=== PATIENT | male | born 1965 | race Caucasian/White ===

== ENCOUNTER 2017-06-17 12:08 | Emergency (ER) | payer OTHER ==
[~2017-06-17] VITALS: Ht 165.1 cm; Wt 63.5 kg
[2017-06-17 12:52] VITALS: BP 115/84
[2017-06-17] MEDS ORDERED: Norco 5mg/325mg tab ORAL ONE (13:30)
[2017-06-17] MEDS ORDERED: Lidocaine 1% MPF 10mg/ml 5ml INJ ONE (13:30)
[2017-06-17 13:45] VITALS: BP 115/84
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
--- NOTE | 2017-06-17 16:16 | Diagnostic Imaging Report ---
Indication: Pain Technique: XRAY Hand Complete L Comparison: None Findings: The fifth finger is held in fixed flexion at the fifth proximal interphalangeal joint on all views. This may suggest an extensor mechanism injury. There is no acute fracture. There is a remote/healed fracture of the ulnar styloid. Degenerative change at the basal joint is noted. No radiopaque foreign body is seen. Impression: Fifth proximal interphalangeal joints held in extreme fixed flexion on all views. This may suggest extensor mechanism injury. Correlate clinically. Consider MRI of the hand and orthopedic referral.
== END 2017-06-17 13:45 | disposition left against medical advice (07) ==
LOC: EMR 12:20
DX: M20.002 Unspecified deformity of left finger(s) (principal)
CPT/HCPCS: 99283